=== PATIENT | female | born 1995 | race Asian ===

== ENCOUNTER 2016-08-30 23:48 | Emergency (ER) | payer MEDICAID ==
[~2016-08-30] VITALS: Ht 162.6 cm; Wt 81.6 kg
[2016-08-31 00:15] VITALS: BP 120/90
[2016-08-31 01:00] VITALS: BP 120/90
--- NOTE | 2016-08-31 01:02 | Emergency Room Report ---
History of Present Illness General Chief Complaint: Behavioral Complaint Source: Patient Present Illness HPI Is a 20-year-old female with a history of PTSD and depression. She said that she was in transitional living and called 911. She said that she was depressed. She claimed that the police took her here but dropped her off in the front of the ER and she checked in. She denies any suicidal thoughts or homicidal thought. She was very reluctant historian. She was at [facility] yesterday and received prescriptions for her medication. She did not receive prescription for Adderall or chronic pain. She denies suicidal thoughts or homicidal thoughts. Denies any hallucination or delusion. Allergies: Coded Allergies: No Known Allergies (Unverified , 08/31/16) Patient History Past Medical History: see triage record, old chart reviewed, psych hx, depression, bipolar Past Surgical History: other Family History: none Last Menstrual Period: august Now: No Immunizations: other Reviewed Nursing Documentation: PMH: Agreed, PSxH: Agreed Nursing Documentation-PMH History Of Psychiatric Problem: Yes - depression,PTSD Review of Systems ENT: Denies: sore throat Cardiovascular: Denies: chest pain, palpitations Gastrointestinal/Abdominal: Denies: diarrhea, nausea, vomiting Musculoskeletal: Denies: back problems Skin: Denies: rash Neurological: Denies: MONZON, seizures All Other Systems: negative except mentioned in HPI Physical Exam Vital Signs Date Time Temp Pulse Resp B/P Pulse Ox O2 Delivery O2 Flow Rate FiO2 08/31/16 00:07 98.4 97 16 121/89 96 Room Air vitals normal Sp02 EP Interpretation: reviewed, normal General Appearance: alert/responsive, no apparent distress, non-toxic Head: normocephalic, atraumatic Eyes: PERRL, EOMI ENT: oropharynx normal Neck: supple/symm/no masses Respiratory: effort normal, no rhonchi, no wheezing Cardiovascular: no murmur, gallop, rub Gastrointestinal: non-tender, no mass, non-distended, no rebound/guarding, normal bowel sounds Musculoskeletal: gait & station normal Neurologic: oriented x3, sensory intact, motor strength/tone normal Skin: no rash, normal palpation Medical Decision Making Diagnostic Impression: Primary Impression: Depression Qualified Codes: F33.9 - Major depressive disorder, recurrent, unspecified ER Course Patient presents with chief complaint of feeling depressed. She denies any drugs or alcohol. Denies suicidal thought homicidal thought. No psychosis. She said that she wanted to talk to a psychiatrist right now. Explained to her that it is 1 AM and is no psychiatrist here right now. We can call for PET team once bloodwork and drug screen are done. She was not happy with this. Because we don't have a psychiatrist on-call, patient wanted to leave. She's not suicidal homicidal. I see no 5150 criteria. We'll discharge. She left prior to paperwork. Last Vital Signs Date Time Temp Pulse Resp B/P Pulse Ox O2 Delivery O2 Flow Rate FiO2 08/31/16 00:07 98.4 97 16 121/89 96 Room Air Status: unchanged Disposition: HOME, SELF-CARE Condition: Stable Referrals: NOT CHOSEN KASIA/,REFERRING (PCP) FAUSTO MEDINA M.D. Aug 31, 2016 01:02
== END 2016-08-31 01:00 | disposition home or self-care (01) ==
LOC: EMR 08-31 00:26
DX: F33.9 Major depressive disorder, recurrent, unspecified (principal)
CPT/HCPCS: 99282